=== PATIENT | female | born 1990 | race African-American/Black ===

== ENCOUNTER 2017-03-20 16:49 | Emergency (ER) | payer BC ==
[~2017-03-20] VITALS: Ht 157.5 cm; Wt 63.5 kg
[2017-03-20 16:52] VITALS: BP 163/80
[2017-03-20] MEDS ORDERED: NKM (16:56)
[2017-03-20] MEDS ORDERED: Metoclopramide 10mg/10ml Liq ORAL ONE (17:15)
[2017-03-20] MEDS ORDERED: Lidocaine 2% Visc 15ml soln ORAL ONE (17:15)
[2017-03-20] MEDS ORDERED: Dicyclomine HCl 10mg/5ml oral soln ORAL ONE (17:15)
[2017-03-20 17:17] LABS: APPEARANCE,URINE SLIGHTLY CLOUDY; KETONES,URINE 1+ (NEGATIVE); LEUKOCYTE ESTERASE ,URINE 1+ (NEGATIVE); NITRITE,URINE NEGATIVE (NEGATIVE); PH,URINE 7 (4.5-8.0); PROTEIN,URINE NEGATIVE (NEGATIVE); UROBILINOGEN,URINE NORMAL MG/DL (0.0-1.0)
[2017-03-20 17:34] LABS: BACTERIA,URINE MANY /HPF; RBC,URINE 0-2 /HPF (0 - 2); SQUAMOUS EPITHELIAL CELL,UR MANY /LPF (NONE/OCC); WBC,URINE 15-20 /HPF (0 - 2)
[2017-03-20] MEDS ORDERED: NITROFURANTOIN100 M2 ORAL (17:39)
[2017-03-20 17:45] VITALS: BP 152/80
--- NOTE | 2017-03-20 17:49 | Emergency Room Report ---
History of Present Illness General Chief Complaint: Abdominal Pain Source: Patient Present Illness HPI 26YOF with 1 week of lower abd pain, bilateral, polyuria Denies nausea/vomiting, flank pain, dysuria Urine is dark Works at [employer] - long periods of time standing/on feet - not voiding when she needs to Denies other PMHx or PSHx Also c/o epigastric "burning pain" no assoc with eating. Denies ETOH, smoking. Allergies: Coded Allergies: No Known Allergies (Unverified , 03/20/17) Patient History Past Medical History: none Past Surgical History: none Pertinent Family History: none Last Menstrual Period: Three weeks ago Now: No Immunizations: UTD Reviewed Nursing Documentation: PMH: Agreed, PSxH: Agreed Nursing Documentation-PMH Hx Gastrointestinal Problems: Yes - GERD Review of Systems All Other Systems: negative except mentioned in HPI Physical Exam Vital Signs Date Time Temp Pulse Resp B/P (MAP) Pulse Ox O2 Delivery O2 Flow Rate FiO2 03/20/17 16:52 98.8 76 16 163/80 100 Room Air Sp02 EP Interpretation: reviewed, normal General Appearance: normal inspection, well appearing, no apparent distress, alert, GCS 15, non-toxic Head: atraumatic ENT: normal ENT inspection, hearing grossly normal, normal voice Neck: normal inspection, full range of motion, supple, no bony tend Respiratory: normal inspection, lungs clear, normal breath sounds, no respiratory distress, no retraction, no wheezing Cardiovascular #1: regular rate, rhythm, no edema Gastrointestinal: normal inspection, normal bowel sounds, non tender, soft, no guarding, no hernia Genitourinary: no CVA tenderness Musculoskeletal: normal inspection, back normal, normal range of motion, Magdalene' s Sign negative Neurologic: normal inspection, alert, responsive, speech normal Psychiatric: normal inspection, judgement/insight normal, mood/affect normal Skin: normal inspection, normal color, no rash Medical Decision Making Diagnostic Impression: Primary Impression: UTI (urinary tract infection) Qualified Codes: N30.01 - Acute cystitis with hematuria Additional Impression: Abdominal pain Qualified Codes: R10.30 - Lower abdominal pain, unspecified ER Course Urine preg negative UA grossly infected Rx Macrobid Epigastric salgado, ?gastritis. Improved with GI cocktail DC home PMD followup as needed Last Vital Signs Date Time Temp Pulse Resp B/P (MAP) Pulse Ox O2 Delivery O2 Flow Rate FiO2 10/29/17 16:52 98.8 76 16 163/80 100 Room Air Status: improved Disposition: HOME, SELF-CARE Condition: Improved Scripts Nitrofurantoin Monohyd/M-Cryst* (MACROBID 100 MG*) 100 Mg Capsule 100 MG ORAL EVERY 12 HOURS for 7 Days, #14 CAP Prov: SKYLA BENSON M.D. 03/20/17 Referrals: NOT CHOSEN IPA/,REFERRING (PCP) Patient Instructions: Abdominal Pain, Adult SKYLA BENSON M.D. Mar 20, 2017 17:49
== END 2017-03-20 17:45 | disposition home or self-care (01) ==
LOC: EDBD 16:49 → EMR 17:25
DX: N39.0 Urinary tract infection, site not specified (principal); K21.9 Gastro-esophageal reflux disease without esophagitis
CPT/HCPCS: 81003; 81025; 87086; 99284